=== PATIENT | female | born 1985 | race African-American/Black ===

== ENCOUNTER 2020-07-01 01:20 | Emergency (ER) | payer MEDICAID ==
[~2020-07-01] VITALS: Ht 160 cm; Wt 159.0 kg
[2020-07-01 01:30] VITALS: BP 170/95
[2020-07-01] MEDS ORDERED: ACETAMINOPHEN 325MG TABLET PO PRN (02:45)
[2020-07-01 04:18] LABS: BASOPHILS % 0.4 % (0.0-2.0); EOSINOPHILS % 1.1 % (0.0-5.0); HEMATOCRIT. 33.9 % (36.0-48.0); MEAN CORPUSCULAR HEMOGLOBIN 26.2 pg (28.0-32.0); MEAN CORPUSCULAR VOLUME 80.5 fL (81.0-99.0); MONOCYTES % 9.6 % (2.0-8.0); NEUTROPHILS % 59.9 % (40.0-76.0); PLATELET 367 x1000/uL (130-400); RED BLOOD CELL COUNT 4.21 mill/uL (4.2-5.4); RED CELL DISTRIBUTION WIDTH 15.6 % (11.6-14.6)
[2020-07-01 04:30] LABS: CHLORIDE 105 mEq/L (98-107)
[2020-07-01 04:45] LABS: B-HCG QUANTITATIVE 786 mIU/mL (<3)
[2020-07-01 05:44] LABS: CLARITY URINE CLEAR (CLEAR); COLOR URINE ORANGE (YELLOW); KETONES URINE TRACE (NEGATIVE); LEUKOCYTE ESTERASE URINE TRACE (NEGATIVE); NITRITE URINE NEGATIVE (NEGATIVE); OCCULT BLOOD URINE 3+ (NEGATIVE); PH URINE 6.5 (4.5-8.0); PROTEIN URINE NEGATIVE (NEGATIVE); SPECIFIC GRAVITY URINE 1.009 (1.005-1.030); UROBILINOGEN URINE 0.2 E.U./dL (0.2-1.0)
[2020-07-01] MEDS ORDERED: RHO(D) IMMUNE GLOBULIN 300 MCG/SYR IM ONE (06:15)
== END 2020-07-01 07:45 | disposition home or self-care (01) ==
LOC: ER 01:20
DX: O03.9 Complete or unspecified spontaneous abortion without complication (principal)
CPT/HCPCS: 36415; 76801; 80053; 81003; 81025; 84702; 85025; 86850; 86900; 90384; 93005; 96372; 99285